=== PATIENT | female | born 1985 | race African-American/Black ===

== ENCOUNTER 2017-03-03 07:54 | Emergency (ER) | payer MEDICAID ==
[~2017-03-03] VITALS: Ht 165.1 cm; Wt 64.0 kg
[2017-03-03 07:57] VITALS: BP 120/70
== END 2017-03-03 09:49 | disposition left against medical advice (07) ==
LOC: ER 08:58
DX: Z53.21 Procedure and treatment not carried out due to patient leaving prior to being seen by health care provider (principal)